=== PATIENT | male | born 1985 | race Two or more races ===

== ENCOUNTER 2019-01-09 18:53 | Emergency (ER) | payer MEDICAID ==
[~2019-01-09] VITALS: Ht 175.3 cm; Wt 90.0 kg
[2019-01-09 18:56] VITALS: BP 116/79
[2019-01-09] MEDS ORDERED: IBUPROFEN 600MG TABLET PO ONE (22:45)
== END 2019-01-09 22:57 | disposition home or self-care (01) ==
LOC: ER 18:53
DX: M54.5 Low back pain (principal)
CPT/HCPCS: 99282